=== PATIENT | female | born 1980 | race Caucasian/White ===

== ENCOUNTER 2016-12-31 19:40 | Emergency (ER) | payer MEDICAID ==
[~2016-12-31] VITALS: Ht 154.9 cm; Wt 82.1 kg
[2016-12-31 19:42] VITALS: BP 142/94
[2016-12-31] MEDS ORDERED: LIDOCAINE 1%, 20ML SQ ONE (20:00)
[2016-12-31] MEDS ORDERED: DIAZEPAM 5 MG TABLET PO ONE (20:30)
[2016-12-31] MEDS ORDERED: LIDOCAINE 1%, 20ML ONE (20:38)
[2016-12-31] MEDS ORDERED: DIAZEPAM 5 MG TABLET ONE (20:38)
== END 2016-12-31 21:38 | disposition home or self-care (01) ==
LOC: ED 21:32
DX: L02.214 Cutaneous abscess of groin (principal); J44.9 Chronic obstructive pulmonary disease, unspecified
CPT/HCPCS: 10060

== ENCOUNTER 2019-08-06 22:17 | Emergency (ER) | payer MEDICAID ==
[~2019-08-06] VITALS: Ht 157.5 cm; Wt 84.0 kg
[2019-08-06 22:21] VITALS: BP 140/92
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
[2019-08-06] MEDS ORDERED: MORPHINE SULFATE 4 MG/ML, 1ML ONE ×2 (22:59→23:26)
[2019-08-06] MEDS ORDERED: ONDANSETRON 2MG/ML, 2ML ONE (22:59)
[2019-08-06] MEDS ORDERED: LIDOCAINE 1%-EPI 1:100K, 20ML ONE (22:59)
[2019-08-06] MEDS ORDERED: LIDOCAINE 1%-EPI 1:100K, 20ML INFIL ONE (23:00)
[2019-08-06] MEDS ORDERED: ONDANSETRON 2MG/ML, 2ML IVPush ONE (23:00)
[2019-08-06] MEDS ORDERED: SODIUM CHLORIDE FLUSH 10ML SYR IVF ONE (23:00)
--- NOTE | 2019-08-06 23:00 | NUR ---
IV START. LABS DRAWN AND 1 SET OF BLOOD CULTURES.
[2019-08-06] MEDS: MORPHINE SULFATE 4 MG/ML, 1ML IVPush PRN ×2 (23:02→23:29)
--- NOTE | 2019-08-06 23:04 | NUR ---
MEDS ADMIN PER OCT.
[2019-08-06 23:18] LABS: BASOPHILS # (AUTO) 0.04 x10^3/uL (0-0.1); BASOPHILS % (AUTO) 0 % (0-1); EOSINOPHILS # (AUTO) 0.41 x10^3/uL (0-0.4); EOSINOPHILS % (AUTO) 4 % (1-7); LYMPHOCYTES # (AUTO) 2.48 x10^3/uL (1-3.4); LYMPHOCYTES % (AUTO) 23 % (22-44); MD NO; MEAN CORPUSCULAR HGB CONC 33.2 g/dL (32.4-35.8); MEAN CORPUSCULAR VOLUME 93.4 fL (80-100); MEAN PLATELET VOLUME 9.1 fL (7.4-10.4); MONOCYTES # (AUTO) 0.74 x10^3/uL (0.2-0.8); MONOCYTES % (AUTO) 7 % (2-9); NEUTROPHILS # (AUTO) 7.21 x10^3/uL (1.8-6.8); NEUTROPHILS % (AUTO) 66 % (42-75); PLATELET COUNT 318 x10^3/uL (130-400); RED BLOOD COUNT 4.49 x10^6/uL (3.82-5.3); RED CELL DISTRIBUTION WIDTH 13.7 % (9.6-15.2)
--- NOTE | 2019-08-06 23:29 | NUR ---
MEDS GIVEN PER MAR. I&D COMPLETE BY PROVIDER.
[2019-08-06 23:30] LABS: ALANINE AMINOTRANSFERASE 29 U/L (12-78); ALBUMIN 3.4 g/dL (3.4-5.0); ANION GAP 8 mmol/L (5-15); CALCIUM 8.6 mg/dL (8.5-10.1); CHLORIDE 110 mmol/L (98-107); CREATININE 0.86 mg/dL (0.55-1.02)
[2019-08-06 23:32] LABS: ALKALINE PHOSPHATASE 102 U/L (45-117); BILIRUBIN,TOTAL 0.2 mg/dL (0.2-1.0); TOTAL PROTEIN 7.6 g/dL (6.4-8.2)
--- NOTE | 2019-08-06 23:39 | NUR ---
ALL RESULTS ARE BACK AT THIS TIME. CHART UP FOR RECHECK.
[2019-08-06] MEDS ORDERED: CEPHALEXIN 500 MG CAPSULE ONE (23:40)
--- NOTE | 2019-08-06 23:50 | NUR ---
ABX ADMIN PER OCT.
[2019-08-07] MEDS ORDERED: CEPHALEXIN 500 MG CAPSULE PO ONE
== END 2019-08-06 23:54 | disposition home or self-care (01) ==
LOC: ED 22:36
DX: L03.317 Cellulitis of buttock (principal); L02.31 Cutaneous abscess of buttock; J44.9 Chronic obstructive pulmonary disease, unspecified; F17.200 Nicotine dependence, unspecified, uncomplicated
CPT/HCPCS: 10060; 36415; 80053; 83605; 85025; 87040; 96374; 96375; 99283; J2270; J2405